=== PATIENT | male | born 1980 | race Caucasian/White ===

== ENCOUNTER 2020-09-18 11:47 | Emergency (ER) | payer SELFPAY ==
[2020-09-18 12:00] VITALS: BP 131/94
[2020-09-18] MEDS ORDERED: TRAMADOL HCL 50 MG TABLET PO ONE (12:49)
--- NOTE | 2020-09-18 12:50 | ER Document Report ---
HPI - HPI Patient complains to provider of: Left index finger laceration Time Seen by Provider: 09/18/20 12:45 Pain Level: 4 Notes: 40-year-old male to the emergency department with complaints of a laceration to his left index finger that began just prior to arrival. 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 He states the area that he was working and was fairly greasy as he was cutting his left index finger came out and he basically cut off part of the nail and part of the finger. He states he has had some difficulty getting it to stop bleeding. States that he is up-to-date on his tetanus shot. He is right-hand dominant. - ROS Systems Reviewed and Negative: Yes All other systems reviewed and negative - CONSTITUTIONAL Constitutional: DENIES: Fever, Chills - EENT EENT: DENIES: Sore Throat, Ear Pain, Congestion - NEURO Neurology: DENIES: Headache, Weakness - CARDIOVASCULAR Cardiovascular: DENIES: Chest pain - RESPIRATORY Respiratory: DENIES: Trouble Breathing, Coughing - GASTROINTESTINAL Gastrointestinal: DENIES: Abdominal Pain, Nausea, Patient vomiting, Diarrhea - MUSCULOSKELETAL Musculoskeletal: REPORTS: Extremity pain Notes: Left index finger pain from laceration - DERM Skin Color: Normal Skin Problems: Laceration - Laceration left index anger Past Medical History - General Information source: Patient - Social History Smoking Status: Current Every Day Smoker Frequency of alcohol use: Occasional Drug Abuse: None Family History: Reviewed & Not Pertinent Vertical Provider Document - CONSTITUTIONAL Agree With Documented VS: Yes Exam Limitations: No Limitations General Appearance: WD/WN, Mild Distress Notes: Mild pain distress. Holding the left index finger with right hand - HEENT HEENT: Atraumatic, Normocephalic, PERRLA - NECK Neck: Normal Inspection, Supple - RESPIRATORY Respiratory: Breath Sounds Normal, No Respiratory Distress. negative: Rales, Rhonchi, Wheezing - CARDIOVASCULAR Cardiovascular: Regular Rate, Regular Rhythm, No Murmur - GI/ABDOMEN Gastrointestinal: Abdomen Soft, Abdomen Non-Tender, No Organomegaly - MUSCULOSKELETAL/EXTREMETIES Notes: There is a laceration to the left index finger. Half of the nail and part of the dorsal distal finger has been avulsed off. There is nothing to repair. It is actively bleeding. Cap refill is less than 2 seconds. Patient has full range of motion with 5 out of 5 strength against resistance in testing of extensor tendon and both flexor tendons of the left index finger. There are no other fingers involved. They all have full range of motion against resistance. There is no snuffbox tenderness. radial pulse intact and equal. - NEURO Level of Consciousness: Awake, Alert, Appropriate Motor/Sensory: No Motor Deficit, No Sensory Deficit - DERM Integumentary: Warm, Laceration - see MS for further discussion of soft tissue avulsion to the left index finger Course - Re-evaluation Re-evalutation: Impression: Left index finger soft tissue avulsion to the tip of the finger. Does not appear to involve the bone. We will go ahead and place a quick clot dressing on it. Have educated him to keep it on for 24 hours and to slowly take it off with a little bit of moisture. He is to return if any worsening symptoms. We will go ahead and send home with antibiotics as well. Patient agrees with the plan. - Vital Signs Vital signs: Temp Pulse Resp BP Pulse Ox 98.2 F 110 H 18 131/94 H 97 09/18/20 12:00 09/18/20 12:00 09/18/20 12:00 09/18/20 12:00 09/18/20 12:00 - Diagnostic Test Radiology reviewed: Image reviewed, Reports reviewed Discharge - Discharge Clinical Impression: Soft tissue avulsion Finger laceration Qualifiers: Encounter type: initial encounter Finger: index finger Damage to nail status: with damage Foreign body presence: without foreign body Laterality: left Nico lified Code(s): S61.311A - Laceration without foreign body of left index finger with damage to nail, initial encounter Condition: Stable Disposition: HOME, SELF-CARE Instructions: Laceration Care ([facility]), Prophylactic Antibiotic ([facility]) Additional Instructions: Keep dressing on for 24 hours before changing it. Wash gently daily with warm soapy water. Then reapply dressing. Keep the wound clean and dry. Complete all antibiotics to prevent infection. Return if any worsening symptoms such as worsening pain, fevers, redness, swelling, or draining pus. Prescriptions: Cephalexin Monohydrate [Keflex 500 mg Capsule] 500 mg PO QID 7 Days #28 capsule Tramadol HCl [Ultram 50 mg Tablet] 50 mg PO Q6H PRN #10 tab PRN Reason: Forms: Return to Work Referrals: [facility] [Provider Group] - Follow up in 1 week
--- NOTE | 2020-09-18 14:18 | RADIOLOGY REPORT (SQ) ---
EXAM DESCRIPTION: HAND LEFT 3 VIEWS IMAGES COMPLETED DATE/TIME: 09/18/2020 1:28 pm REASON FOR STUDY: finger laceration, eval for fracture COMPARISON: None. EXAM PARAMETERS: NUMBER OF VIEWS: Three views. TECHNIQUE: AP, lateral and oblique radiographic images acquired of the left hand. LIMITATIONS: None. FINDINGS: MINERALIZATION: Normal. BONES: No acute fracture or dislocation. No worrisome bone lesions. JOINTS: No effusions. SOFT TISSUES: No soft tissue swelling. No foreign body. OTHER: No other significant finding. IMPRESSION: NEGATIVE STUDY OF THE LEFT HAND. NO RADIOGRAPHIC EVIDENCE OF ACUTE INJURY. TECHNICAL DOCUMENTATION: JOB ID: [id number] 2010 [employer]- All Rights Reserved Reading location - IP/workstation name: [email or web address]
== END 2020-09-18 14:04 | disposition home or self-care (01) ==
LOC: ER 11:47
DX: S61.311A Laceration without foreign body of left index finger with damage to nail, initial encounter (principal); F17.200 Nicotine dependence, unspecified, uncomplicated; W26.0XXA Contact with knife, initial encounter; Y93.G3 Activity, cooking and baking; Y99.0 Civilian activity done for income or pay
CPT/HCPCS: 99284